=== PATIENT | male | born 1945 ===

== ENCOUNTER 2019-04-09 13:42 | Outpatient (CLI) | payer MEDICARE, OTHER ==
[~2019-04-09] VITALS: Ht 180.3 cm; Wt 76.7 kg
[~2019-04-09 13:42] MED LIST: LOSA100T57 PO
== END 2019-04-09 13:57 ==
LOC: PREOP 13:42
PROVIDERS: ATTEND Pediatrics
DX: Z01.818 Encounter for other preprocedural examination (principal)